=== PATIENT | female | born 1950 | race African-American/Black ===

== ENCOUNTER 2018-11-16 22:19 | Emergency (ER) | payer OTHER ==
[2018-11-16 22:28] VITALS: BMI 27.8
--- NOTE | 2018-11-16 22:52 | PDOC ---
History of Present Illness - General History Source: Patient, Family Exam Limitations: No Limitations - History of Present Illness Initial Comments: 11/16/18 23:26 The patient is a 68 year old female, with a significant PMH of asthma, who presents to the emergency department with non productive cough, fever, generalized body aches, headache, sore throat and runny nose beginning yesterday. The patient states she took Nyquil around 9:15 pm this evening. The patient states she did not receive a flu shot this year. The patient denies chest pain, shortness of breath,and dizziness. Denies, nausea, vomit, diarrhea and constipation. Denies dysuria, frequency, urgency and hematuria. Allergies: diphenhydramine HCL, ibuprofen, [seafood] <Yahir Bartlett - Last Filed: 11/16/18 23:26> <Michelle Carr - Last Filed: 11/17/18 00:41> - General Chief Complaint: Shortness of Breath Stated Complaint: SOB ASHTHMA Time Seen by Provider: 11/16/18 22:52 Past History <Yahir Bartlett - Last Filed: 11/16/18 23:26> - Past Medical History Asthma: Yes Cardiac Disorders: Yes (palpitations, irregular) CVA: No COPD: No GI Disorders: Yes (GASTROPARESIS) Liver Disease: No Seizures: No Thyroid Disease: No - Surgical History Orthopedic Surgery: Yes (JACINTO KNEE SURGERY) - Suicide/Smoking/Psychosocial Hx Smoking History: Never smoked Have you smoked in the past 12 months: No Hx Alcohol Use: Yes (none x 1 year) Drug/Substance Use Hx: Yes Substance Use Type: Alcohol, Cocaine Hx Substance Use Treatment: Yes (rehab) <Michelle Carr - Last Filed: 11/17/18 00:41> - Past Medical History Allergies/Adverse Reactions: Allergies Allergy/AdvReac Type Severity Reaction Status Date / Time diphenhydramine HCl Allergy "ITCHY" Verified 11/18/15 08:34 [From Benadryl] ibuprofen [From Motrin] AdvReac "STOMACH Verified 11/18/15 08:34 HURTS" SEAFOOD Allergy "RASH" Uncoded 11/18/15 08:34 Home Medications: Ambulatory Orders Albuterol Sulfate Inhaler - [Ventolin HFA Inhaler -] 1 inh PO QID PRN 05/21/15 Aspirin [ASA -] 81 mg PO DAILY 05/21/15 Fluoxetine HCl [Prozac] 20 mg PO DAILY 05/21/15 Zolpidem Tartrate [Ambien -] 10 mg PO HS 05/21/15 Gabapentin [Neurontin -] 400 mg PO Q8H 12/07/16 Docusate Sodium [Colace -] 100 mg PO TID #90 capsule 08/01/18 Sennosides [Senna -] 1 tab PO DAILY PRN #30 tablet 08/01/18 Cholecalciferol (Vitamin D3) [Vitamin D3] 2,000 unit PO DAILY #30 tablet Fluticasone Prop 0.05% Nasal [Flonase -] 1 spray NS DAILY #1 bot 10/01/18 Tizanidine HCl 2 mg PO BID PRN #60 capsule 10/01/18 Oxycodone HCl/Acetaminophen [Endocet 5-325 Tablet] 1 each PO BID #45 tablet MDD 2 10/25/18 Diclofenac Sodium 2 gm TP TID PRN #1 tube 10/26/18 Review of Systems - Review of Systems Comments:: 11/16/18 23:26 GENERAL/CONSTITUTIONAL: +Fever. No weakness. HEAD, EYES, EARS, NOSE AND THROAT: +Sore throat. No change in vision. No ear pain or discharge. CARDIOVASCULAR: No chest pain or shortness of breath. RESPIRATORY: +Non productive cough. No wheezing, or hemoptysis. GASTROINTESTINAL: No nausea, vomiting, diarrhea or constipation. GENITOURINARY: No dysuria, frequency, or change in urination. MUSCULOSKELETAL: +Body aches. No neck or back pain. SKIN: No rash NEUROLOGIC: +Headache. No vertigo, loss of consciousness, or change in strength/ sensation. ENDOCRINE: No increased thirst. No abnormal weight change. HEMATOLOGIC/LYMPHATIC: No anemia, easy bleeding, or history of blood clots. ALLERGIC/IMMUNOLOGIC: No hives or skin allergy. <Yahir Bartlett - Last Filed: 11/16/18 23:26> *Physical Exam - Vital Signs Last Vital Signs Temp Pulse Resp BP Pulse Ox 98.9 F 108 H 22 H 121/79 98 11/16/18 22:26 11/16/18 22:26 11/16/18 22:26 11/16/18 22:26 11/16/18 22:26 - Physical Exam Comments: 11/16/18 23:28 GENERAL: (+) Febrile. Awake, alert, and fully oriented, in no acute distress HEAD: No signs of trauma EYES: PERRLA, EOMI, sclera anicteric, conjunctiva clear ENT: Auricles normal inspection, hearing grossly normal, nares patent, oropharynx clear without exudates. Moist mucosa NECK: Normal ROM, supple, no lymphadenopathy, JVD, or masses LUNGS: Breath sounds equal, clear to auscultation bilaterally. No wheezes, and no crackles HEART: (+) Tachycardia. Regular rhythm, normal S1 and S2, no murmurs, rubs or gallops ABDOMEN: Soft, nontender, normoactive bowel sounds. No guarding, no rebound. No masses EXTREMITIES: Normal range of motion, no edema. No clubbing or cyanosis. No cords, erythema, or tenderness NEUROLOGICAL: Cranial nerves II through XII grossly intact. Normal speech. SKIN: Warm, Dry, normal turgor, no rashes or lesions noted. <Yahir Bartlett - Last Filed: 11/16/18 23:26> - Vital Signs Last Vital Signs Temp Pulse Resp BP Pulse Ox 98.9 F 108 H 22 H 121/79 98 11/16/18 22:26 11/16/18 22:26 11/16/18 22:26 11/16/18 22:26 11/16/18 22:26 <Michelle Carr - Last Filed: 11/17/18 00:41> Moderate Sedation - Procedure Monitoring Vital Signs: Procedure Monitoring Vital Signs Temperature 98.9 F 11/16/18 22:26 Pulse Rate 108 H 11/16/18 22:26 Respiratory Rate 22 H 11/16/18 22:26 Blood Pressure 121/79 11/16/18 22:26 O2 Sat by Pulse Oximetry (%) 98 11/16/18 22:26 <Yahir Bartlett - Last Filed: 11/16/18 23:26> - Procedure Monitoring Vital Signs: Procedure Monitoring Vital Signs Temperature 98.9 F 11/16/18 22:26 Pulse Rate 108 H 11/16/18 22:26 Respiratory Rate 22 H 11/16/18 22:26 Blood Pressure 121/79 11/16/18 22:26 O2 Sat by Pulse Oximetry (%) 98 11/16/18 22:26 <Michelle Carr - Last Filed: 11/17/18 00:41> ED Treatment Course - LABORATORY CBC & Chemistry Diagram: 11/16/18 23:43 11/16/18 23:43 <Michelle Carr - Last Filed: 11/17/18 00:41> Medical Decision Making - Medical Decision Making 11/17/18 00:39 Pt's labs are normal; Flu negative. Feeling better with hydration. <Michelle Carr - Last Filed: 11/17/18 00:41> *DC/Admit/Observation/Transfer - Attestations Scribe Attestion: 11/16/18 23:28 Documentation prepared by Yahir Bartlett, acting as chief medical officer for Michelle Carr MD. <Yahir Bartlett - Last Filed: 11/16/18 23:26> - Discharge Dispostion Decision to Admit order: No <Michelle Carr - Last Filed: 11/17/18 00:41> Diagnosis at time of Disposition: Upper respiratory infection - Discharge Dispostion Disposition: HOME Condition at time of disposition: Stable - Referrals Referrals: Gagandeep Trevino MD [Primary Care Provider] - - Patient Instructions Printed Discharge Instructions: DI for Viral Upper Respiratory Infection -- Adult - Post Discharge Activity
[2018-11-16] MEDS ORDERED: SODIUM CHLORIDE 0.9% 500 ML INFUS.BAG IV ONE (23:19)
[2018-11-16 23:50] LABS: HEMATOCRIT 36.1 % (32.4-45.2); HEMOGLOBIN 12.5 GM/dL (10.7-15.3); MCH 29.7 pg (25.7-33.7); MCHC 34.6 g/dl (32.0-36.0); MEAN CELL VOLUME 85.9 fl (80-96); MEAN PLT VOLUME 10.2 fl (7.5-11.1); PLATELET COUNT 159 K/MM3 (134-434); RDW 14.4 % (11.6-15.6); WHITE BLOOD COUNT 5.3 K/mm3 (4.0-10.0)
[2018-11-17 00:25] LABS: ALBUMIN 3.8 g/dl (3.4-5.0); ALK PHOS 85 U/L (45-117); ANION GAP 9 MMOL/L (8-16); BILIRUBIN,TOTAL 0.4 mg/dL (0.2-1); BLOOD UREA NITROGEN 11 mg/dL (7-18); CALCIUM 8.6 mg/dL (8.5-10.1); CHLORIDE 104 mmol/L (98-107); CO2 25 mmol/L (21-32); CREATININE 0.7 mg/dL (0.55-1.3); GLUCOSE,RANDOM 106 mg/dL (74-106); POTASSIUM 3.7 mmol/L (3.5-5.1); SGOT/AST 13 U/L (15-37); SGPT/ALT 16 U/L (13-61); SODIUM 138 mmol/L (136-145); TOT PROT 7.3 g/dl (6.4-8.2)
[2018-11-17 01:13] VITALS: BP 127/68; PULSE 88; TEMP 98.5
== END 2018-11-17 01:13 | disposition home or self-care (01) ==
LOC: JER 22:19
DX: J06.9 Acute upper respiratory infection, unspecified (principal); B97.89 Other viral agents as the cause of diseases classified elsewhere; Z87.09 Personal history of other diseases of the respiratory system
CPT/HCPCS: 36415; 71046-TC-FY; 80053; 83605; 85027; 87040; 87804; 99282-25

== ENCOUNTER 2022-12-06 06:50 | Day surgery (SDC) | payer OTHER ==
[2022-11-29 09:21] VITALS: BMI 25.2
[2022-12-06] MEDS ORDERED: CELECOXIB 200 MG CAPSULE PO ONE ×2 (07:49→09:30)
[2022-12-06] MEDS ORDERED: BUPIVICAINE 0.25%/MORPH PF/KETOROLAC - 51ML DISP.SYRINGE IA ONE ×4 (07:49→12:19)
[2022-12-06] MEDS ORDERED: TRANEXAMIC ACID 1000 MG/10 ML VIAL IVPUSH ONE (07:49)
[2022-12-06] MEDS ORDERED: CEFAZOLIN 2 GM in DEXTROSE 5%-WATER - 50 ML IVPB ONE (07:49)
[2022-12-06] MEDS ORDERED: GABAPENTIN 300 MG CAPSULE PO ONE ×2 (07:49→09:30)
[2022-12-06] MEDS ORDERED: CELECOXIB 200 MG CAPSULE ONE (08:56)
[2022-12-06] MEDS ORDERED: GABAPENTIN 300 MG CAPSULE ONE (08:57)
[2022-12-06] MEDS ORDERED: ceFAZolin SODIUM 1 GM VIAL ONE ×2 (09:49→11:12)
[2022-12-06] MEDS ORDERED: THROMBIN (BOVINE) 5,000 UNIT VIAL TP ONE (09:49)
[2022-12-06] MEDS ORDERED: VANCOMYCIN 1,000 MG VIAL (RESTRICTED TO ID ONLY) ONE (09:49)
[2022-12-06] MEDS ORDERED: BUPIVACAINE HCL/PF 0.5% (5 MG/ML) 30 ML VIAL IJ ONE (10:15)
[2022-12-06] MEDS ORDERED: MIDAZOLAM HCL 2 MG/2 ML SINGLE DOSE VIAL ONE ×2 (10:16→11:24)
[2022-12-06] MEDS ORDERED: DEXAMETHASONE SOD PHOSPHATE/PF 10 MG/ML SDV ONE (10:16)
[2022-12-06] MEDS ORDERED: FENTANYL CITRATE/PF 50 MCG/ML VIAL ONE (10:16)
[2022-12-06] MEDS ORDERED: PROPOFOL 20 ML ONE (10:26)
[2022-12-06] MEDS ORDERED: TRANEXAMIC ACID 1000 MG/10 ML VIAL ONE (11:15)
[2022-12-06] MEDS ORDERED: ALBUTEROL SO4 HFA INHALER IH PRN (12:43)
[2022-12-06] MEDS ORDERED: ONDANSETRON 4 MG/2 ML VIAL IVPUSH PRN ×2 (12:44→12:54)
[2022-12-06] MEDS ORDERED: LACTATED RINGERS SOLUTION 1,000 ML IV SCH ×2 (12:45→13:00)
[2022-12-06] MEDS ORDERED: oxyCODONE HCL 5 MG TABLET PO PRN ×3 (12:54)
[2022-12-06] MEDS ORDERED: ACETAMINOPHEN INJECTION 100 ML IVPB ONE (13:25)
[2022-12-06] MEDS: ACETAMINOPHEN 1000 MG/100 ML BAG IVPB ONE ×2 (13:26→19:54)
[2022-12-06] MEDS: SENNOSIDES/DOCUSATE COMBO (SENNA PLUS) TABLET (UD) PO SCH (21:09)
[2022-12-06] MEDS: oxyCODONE HCL 10 MG SUSTAINED ACTING TABLET PO SCH (21:09)
[2022-12-06] MEDS: CEFAZOLIN SODIUM 2 GM in DEXTROSE 5%-WATER 100 ML IVPB SCH (21:10)
[2022-12-07] MEDS: CEFAZOLIN SODIUM 2 GM in DEXTROSE 5%-WATER 100 ML IVPB SCH (04:00)
[2022-12-07] MEDS ORDERED: ASPIRIN 325 MG TABLET PO SCH (08:00)
[2022-12-07] MEDS: oxyCODONE HCL 10 MG SUSTAINED ACTING TABLET PO SCH (09:00)
[2022-12-07] MEDS: SENNOSIDES/DOCUSATE COMBO (SENNA PLUS) TABLET (UD) PO SCH (09:09)
[2022-12-07] MEDS ORDERED: FLUTICASONE PROP 0.05% 16 GM NASAL SPRAY NS SCH (10:00)
[2022-12-07] MEDS ORDERED: PANTOPRAZOLE 40 MG TABLET PO SCH (10:00)
[2022-12-07] MEDS ORDERED: LORATADINE 10 MG TABLET PO SCH (10:00)
[2022-12-07] MEDS ORDERED: MULTIVITAMINS (DAILY MVI) TABLET (FP) PO SCH (10:00)
[2022-12-07 10:10] VITALS: BP 117/52; PULSE 76; RESP 18; TEMP 97.7
== END 2022-12-07 13:08 | disposition home health service (06) ==
LOC: FASUSAT 06:50 → FM/S 14:10 → FASUSAT 12-07 13:08
PROVIDERS: ATTEND Orthopaedic Surgery
PROC: 8E0Y0CZ Robotic Assisted Procedure of Lower Extremity, Open Approach (ICD-10-PCS; 2022-12-06)
PROC: 0SRC0L9 Replacement of Right Knee Joint with Medial Unicondylar Synthetic Substitute, Cemented, Open Approach (ICD-10-PCS; principal; 2022-12-06 10:45)
DX: M17.11 Unilateral primary osteoarthritis, right knee (principal)
CPT/HCPCS: 20985; 27446; C1776; S2900; 73560-TC-RT-FY; 94760; 97010-GP; 97116-GP; 97162-GP; C1713; C1889